=== PATIENT | female | born 1955 | race Caucasian/White ===

== ENCOUNTER 2017-10-03 07:10 | Inpatient (IN) | payer BC ==
[~2017-10-03 07:10] MED LIST: Acetaminophen 325 MG Tab PO SCH; EPINEPHrine 1 MG/ML SDV ONE; Lactated Ringers 1,000 ML IV SCH; Lidocaine 1% 4 ML ONE; Lidocaine 1%/Sod Bicarbonate in NS 8.4% 1 ML Syringe IDERM PRN; Midazolam 1 MG/ML 2 ML SDV ONE; Pregabalin 25 MG Cap PO SCH; Propofol 200 MG/20 ML SDV ONE; Ropivacaine 0.5% 5 MG/ML 30 ML SDV ONE; Sodium Chloride 0.9% 10 ML Syringe FLUSH PRN; ceFAZolin 1 GM Vial ONE; fentaNYL 100 MCG/2 ML SDV ONE; oxyCODONE ER 10 MG TAB.ER PO SCH
[2017-10-03] MEDS ORDERED: Iodine/Sodium Iodide 2% Tincture 30 ML Bottle ONE (07:25)
[2017-10-03] MEDS ORDERED: Bupivacaine 0.25% 10 ML SDV ONE (07:25)
[2017-10-03] MEDS ORDERED: ceFAZolin 1 GM Vial ONE (07:25)
[2017-10-03] MEDS ORDERED: Vancomycin 1 GM SDV ONE (07:25)
--- NOTE | 2017-10-03 07:46 | PCM.PREANE ---
Preanesthetic Assessment - Procedure Proposed Procedure: right total knee - Anesthesia/Transfusion/Family Hx Anesthesia History: Prior Anesthesia Without Reaction Family History of Anesthesia Reaction: No Transfusion History: No Prior Transfusion(s) - Review of Systems General: No Symptoms Pulmonary: No Symptoms Cardiovascular: No Symptoms Gastrointestinal: No Symptoms Neurological: No Symptoms Other: Reports: Liver Problems (enzymes elevated), Thyroid Problems, Depression , Anxiety - Physical Assessment NPO Status Date: 10/02/17 NPO Status Time: 22:00 Pulse: 64 O2 Sat by Pulse Oximetry: 95 Respiratory Rate: 16 Blood Pressure: 149/80 Temperature: 98.2 F Height: 5 ft 1 in Weight: 72.575 kg ASA Class: 2 Mental Status: Alert & Oriented x3 Airway Class: Mallampati = 1 Dentition: Reports: Normal Dentition Thyro-Mental Finger Breadths: 3 Mouth Opening Finger Breadths: 3 ROM/Head Extension: Full Lungs: Clear to Auscultation, Normal Respiratory Effort Cardiovascular: Regular Rate, Regular Rhythm - Lab Values: Laboratory Last Values MRSA (PCR) Negative 09/13/17 10:20 - Allergies Allergies/Adverse Reactions: Allergies Allergy/AdvReac Type Severity Reaction Status Date / Time hair dye Allergy Swelling Uncoded 10/02/17 12:45 - Blood Blood Available: No - Anesthesia Plan Beta [place]: Metoprolol Med Last Dose Date: 10/02/17 Med Last Dose Time: 21:00 - Acknowledgements Anesthesia Type Planned: Spinal Pt an Appropriate Candidate for the Planned Anesthesia: Yes Alternatives and Risks of Anesthesia Discussed w Pt/Guardian: Yes Pt/Guardian Understands and Agrees with Anesthesia Plan: Yes PreAnesthesia Questionnaire HEENT History: Reports: Impaired Vision Cardiovascular History: Reports: High Cholesterol, Hypertension Respiratory History: Reports: 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) Other Respiratory History: pulmonary nodules Gastrointestinal History: Reports: Colon Polyp, Hemorrhoids, 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) Other Gastrointestinal History: elevated LFTs Genitourinary History: Reports: 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: , 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) Other OB/BYN History: postmenopausal atrophic vaginitis Musculoskeletal History: Reports: 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) Other Musculoskeletal History: bilateral knee pain Neurological History: Reports: None Psychiatric History: Reports: Anxiety, Depression, 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) Other Psychiatric History: insomnia Endocrine/Metabolic History: Reports: Hypothyroidism, Obesity/BMI 30+ Hematologic History: Reports: None Immunologic History: Reports: None Oncologic (Cancer) History: Reports: None Dermatologic History: Reports: 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) Other Dermatologic History: ingrown toenails - Past Surgical History Head Surgeries/Procedures: Reports: None HEENT Surgical History: Reports: Tonsillectomy Cardiovascular Surgical History: Reports: None Respiratory Surgical History: Reports: None GI Surgical History: Reports: Cholecystectomy, EGD, Hernia Repair/Other Female Surgical History: Reports: Section Male Surgical History: Reports: None Endocrine Surgical History: Reports: None Neurological Surgical History: Reports: None Musculoskeletal Surgical History: Reports: Arthroscopic Knee Oncologic Surgical History: Reports: None - SUBSTANCE USE Smoking Status *Q: Never Smoker Tobacco Use Within Last Twelve Months: No Second Hand Smoke Exposure: No Days Per Week of Alcohol Use: 0 Recreational Drug Use History: No - HOME MEDS Home Medications: Home Meds Hydrochlorothiazide 25 mg PO DAILY 03/14/15 [History] Levothyroxine [Synthroid] 50 mcg PO DAILY 03/14/15 [History] Metoprolol Succinate [Toprol XL] 50 mg PO DAILY 03/14/15 [History] Aspirin [[place] Aspirin] 81 mg PO DAILY 10/02/17 [History] Calcium Carb/Magnesium Cmb #10 [Leonardo-Mag] 1 tab PO DAILY 10/02/17 [History] Escitalopram Oxalate 10 mg PO DAILY 10/02/17 [History] Fish Oil/Shock-3 Fatty Acids [Fish Oil 1,000 MG] 1 gm PO DAILY 10/02/17 [History ] Flaxseed Oil 1,000 mg PO DAILY 10/02/17 [History] Ubidecarenone [Coq10] 50 mg PO DAILY 10/02/17 [History] - CURRENT (IN HOUSE) MEDS Current Meds: Current Medications Acetaminophen (Tylenol) 975 mg PO ONETIME RICK Stop: 10/03/17 18:00 Bisacodyl (Dulcolax) 5 mg PO DAILY PRN PRN Reason: Constipation Morphine Sulfate 8 mg/Epinephrine HCl 0.3 mg/Cefuroxime Sodium 750 mg/Ketorolac Tromethamine 30 mg/Sodium Chloride 27.9 ml 0 mg .XX ONETIME ONE Stop: 10/03/17 08:31 Cyclobenzaprine HCl (Flexeril) 10 mg PO TID PRN PRN Reason: Spasms Docusate Sodium (Colace) 100 mg PO BID [facility] Lactated Ringer's (Ringers, Lactated) 1,000 mls @ 125 mls/hr IV ASDIRECTED [facility] Stop: 10/03/17 23:00 Cefazolin Sodium/Dextrose 2 gm (/ Premix) 50 mls @ 100 mls/hr IV Q8H [facility] Stop: 10/03/17 23:14 Ketorolac Tromethamine (Toradol) 15 mg IVPUSH Q6H PRN PRN Reason: Pain Lidocaine/Sodium Bicarbonate (Buffered Lidocaine 1% In Ns 8.4%) 0.25 ml IDERM ONETIME PRN PRN Reason: Prior to IV Start Stop: 10/03/17 18:00 Magnesium Hydroxide (Milk Of Magnesia) 30 ml PO BID PRN PRN Reason: Constipation Morphine Sulfate (Morphine) 2 mg IVPUSH Q2H PRN PRN Reason: Breakthrough Pain Naloxone HCl (Narcan) 0.1 mg IVPUSH Q5M PRN PRN Reason: Oversedation Ondansetron HCl (Zofran) 4 mg IVPUSH Q6H PRN PRN Reason: Nausea/Vomiting Oxycodone HCl (Oxycontin) 10 mg PO ONETIME [facility] Stop: 10/03/17 18:00 Oxycodone/Acetaminophen (Percocet 325-5 Mg) 1 - 2 tab PO Q4H PRN PRN Reason: Pain Pregabalin (Lyrica) 50 mg PO ONETIME [facility] Stop: 10/03/17 12:00 Rivaroxaban (Xarelto) 10 mg PO DAILY [facility] Senna (Senna) 8.6 mg PO BID PRN PRN Reason: Constipation Sodium Chloride (Saline Flush) 10 ml FLUSH ASDIRECTED PRN PRN Reason: Keep Vein Open Stop: 10/03/17 18:00 Discontinued Medications Acetaminophen (Tylenol) 975 mg PO ONETIME [facility] Stop: 10/03/17 18:00 Bupivacaine HCl (Sensorcaine-Mpf 0.25%) Confirm Administered Dose 30 ml .ROUTE .STK-MED ONE Stop: 10/03/17 07:26 Cefazolin Sodium (Ancef) Confirm Administered Dose 2 gm .ROUTE .STK-MED ONE Stop: 10/03/17 06:32 Cefazolin Sodium (Ancef) Confirm Administered Dose 2 gm .ROUTE .STK-MED ONE Stop: 10/03/17 07:26 Epinephrine HCl (Adrenalin) Confirm Administered Dose 1 mg .ROUTE .STK-MED ONE Stop: 10/03/17 06:34 Fentanyl (Sublimaze) Confirm Administered Dose 100 mcg .ROUTE .STK-MED ONE Stop: 10/03/17 06:29 Lidocaine HCl (Xylocaine-Mpf 1%) Confirm Administered Dose 4 mls @ as directed .ROUTE .STK-MED ONE Stop: 10/03/17 06:28 Iodine (Iodine 2% Mild Tincture) Confirm Administered Dose 30 ml .ROUTE .STK- MED ONE Stop: 10/03/17 07:26 Midazolam HCl (Versed 1 Mg/Ml) Confirm Administered Dose 2 mg .ROUTE .STK-MED ONE Stop: 10/03/17 06:29 Oxycodone HCl (Oxycontin) 10 mg PO ONETIME RICK Stop: 10/03/17 18:00 Pregabalin (Lyrica) 50 mg PO ONETIME RICK Propofol (Diprivan 20 Ml) Confirm Administered Dose 600 mg .ROUTE .STK-MED ONE Stop: 10/03/17 06:28 Ropivacaine (Naropin 0.5%) Confirm Administered Dose 30 ml .ROUTE .STK-MED ONE Stop: 10/03/17 06:34 Tranexamic Acid (Cyklokapron) Confirm Administered Dose 1,000 mg .ROUTE .STK- MED ONE Stop: 10/03/17 07:26 Vancomycin HCl (Vancomycin) Confirm Administered Dose 1 gm .ROUTE .STK-MED ONE Stop: 10/03/17 07:26
[2017-10-03] MEDS ORDERED: Morphine 8 MG, EPINEPHrine 0.3 MG, Cefuroxime 750 MG, Ketorolac 30 MG, Sodium Chloride ... ONE ×10 (08:30→10:00)
[2017-10-03] MEDS ORDERED: Bupivacaine 0.75% 30 ML SDV ONE (09:04)
[2017-10-03] MEDS ORDERED: Lactated Ringers 1,000 ML ONE (09:04)
[2017-10-03] MEDS ORDERED: fentaNYL 100 MCG/2 ML SDV IVPUSH PRN (09:17)
[2017-10-03] MEDS ORDERED: Ondansetron 4 MG/2 ML SDV IVPUSH PRN ×2 (09:17→11:00)
[2017-10-03] MEDS ORDERED: Meperidine PF 50 MG/ML Syringe IVPUSH PRN (09:17)
[2017-10-03] MEDS ORDERED: Ketorolac 30 MG/ML SDV ONE (10:19)
[2017-10-03] MEDS ORDERED: Ondansetron 4 MG/2 ML SDV ONE (10:22)
--- NOTE | 2017-10-03 10:50 | PCM.POSTAN ---
POST ANESTHESIA ASSESSMENT - MENTAL STATUS Mental Status: Alert, Oriented - VITAL SIGNS Pulse Rate: 67 SaO2: 99 Resp Rate: 10 Blood Pressure: 115/57 Temperature: 97.7 F - RESPIRATORY Respiratory Status: Respiratory Rate WNL, Airway Patent, O2 Saturation Stable, Supplemental Oxygen - CARDIOVASCULAR CV Status: Pulse Rate WNL, Blood Pressure Stable - GASTROINTESTINAL GI Status: No Symptoms - PAIN Pain Score: 0 - POST OP HYDRATION Hydration Status: Adequate & Stable
[2017-10-03] MEDS ORDERED: Ketorolac 15 MG/ML SDV IVPUSH PRN (11:00)
[2017-10-03] MEDS ORDERED: Cyclobenzaprine 10 MG Tab PO PRN (11:00)
[2017-10-03] MEDS ORDERED: Bisacodyl 5 MG Tab PO PRN (11:00)
[2017-10-03] MEDS ORDERED: Naloxone 0.4 MG/ML SDV IVPUSH PRN (11:00)
[2017-10-03] MEDS ORDERED: Magnesium Hydroxide 400 MG/5 ML Susp 30 ML Cup PO PRN (11:00)
[2017-10-03] MEDS ORDERED: Acetaminophen/oxyCODONE 325-5 MG Tab PO PRN (11:00)
[2017-10-03] MEDS ORDERED: Morphine 2 MG/ML Syringe IVPUSH PRN (11:00)
[2017-10-03] MEDS ORDERED: Sennosides 8.6 MG Tab PO PRN (11:00)
--- NOTE | 2017-10-03 11:50 | CR ---
Right knee: AP and lateral views of the right knee were obtained. Comparison: Prior right knee study of 03/01/15. Knee prosthesis is seen. Components are aligned. Soft tissue air is noted from the surgical procedure. Underlying bony structures are intact. Impression: 1. Satisfactory radiographic appearance of recently placed right knee prosthesis. Diagnostic code #2
--- NOTE | 2017-10-03 12:06 | PCM.OPNOTE ---
- General Post-Op/Procedure Note Date of Surgery/Procedure: 10/03/17 Operative Procedure(s): right total knee arthroplasty Pre Op Diagnosis: right knee osteoarthrosis Post-Op Diagnosis: Same Primary Surgeon: Joshua Pascal Anesthesia Provider: Zev Joe Human Resources Trainer: Sandrine Ramirez Human Resources Trainer: Tisha Landers EBL in mLs: 250 Complications: None Condition: Good Free Text/Narrative:: Intake & Output 10/02/17 10/03/17 10/03/17 22:59 06:59 14:59 Output Total 75 Balance -75 size 3 femur size 2 tibia 9mm 29x9
--- NOTE | 2017-10-03 12:11 | PCM.SN ---
- Free Text/Narrative Note: rRight selective femoral nerve block at the adductor canal for post-procedure pain control under US guidance requested by Dr. Pascal. Time Out: 1120 Start: 1120 End: 1131 Chart reviewed. Consent signed. Questions answered. Appropriate monitors applied. Time out performed. Right mid-shaft femur identified with ultrasound, scanning medially of femur, the femoral artery in the adductor canal visualized , and the femoral nerve located laterally to the artery. The skin was prepped lateral to the ultrasound probe with chlorahexadine times two. The 21ga 4 insulated block needle was inserted under direct ultrasound guidance into the adductor canal. 25mL of 0.5% ropivacaine with 1:200,000 epinephrine was injected circumferentially around the nerve with intermittent negative aspiration noted. Patient tolerated the procedure well. Sterile technique noted along with sterile gloves, mask, and sterile probe cover. See picture on progress note and vital signs on nurses notes. Block completed in PACU with Alex Curry CRNA assist.
--- NOTE | 2017-10-03 15:33 | PCM.CONS ---
H&P History of Present Illness - General Date of Service: 10/03/17 Admit Problem/Dx: Admission Diagnosis/Problem Admission Diagnosis/Problem Osteoarthritis of knee Source of Information: Patient, Provider History Limitations: Reports: No Limitations - History of Present Illness Initial Comments - Free Text/Narative: Nolvia is a 62 yo female patient of Dr. Pascal who is post-operative day 0 of R TKA. Hospital medicine was consulted for post-operative medical care. At this time she is stable. Pain is controlled. She denies any chest pain, shortness of breath, palpitations, nausea, or vomiting. She carries a history of: HTN, HLD, pulmonary nodules, hypothyroid, anxiety, insomnia, elevated LFTs, liver hemangioma, gastritis. She has never smoked. She is a full code. Her primary care provider is Dr. Jojo Mendoza. - Related Data Allergies/Adverse Reactions: Allergies Allergy/AdvReac Type Severity Reaction Status Date / Time hair dye Allergy Swelling Uncoded 10/03/17 12:25 Home Medications: Home Meds Hydrochlorothiazide 25 mg PO DAILY 03/14/15 [History] Levothyroxine [Synthroid] 50 mcg PO DAILY 03/14/15 [History] Metoprolol Succinate [Toprol XL] 50 mg PO DAILY 03/14/15 [History] Aspirin [[place] Aspirin] 81 mg PO DAILY 10/02/17 [History] Calcium Carb/Magnesium Cmb #10 [Leonardo-Mag] 1 tab PO DAILY 10/02/17 [History] Escitalopram Oxalate 10 mg PO DAILY 10/02/17 [History] Fish Oil/[place]-3 Fatty Acids [Fish Oil 1,000 MG] 1 gm PO DAILY 10/02/17 [History ] Flaxseed Oil 1,000 mg PO DAILY 10/02/17 [History] Ubidecarenone [Coq10] 50 mg PO DAILY 10/02/17 [History] Past Medical History HEENT History: Reports: Impaired Vision Cardiovascular History: Reports: High Cholesterol, Hypertension Respiratory History: Reports: 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) Other Respiratory History: pulmonary nodules Gastrointestinal History: Reports: Colon Polyp, Hemorrhoids, 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) Other Gastrointestinal History: elevated LFTs Genitourinary History: Reports: None 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: , 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) Other OB/BYN History: postmenopausal atrophic vaginitis Musculoskeletal History: Reports: 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) Other Musculoskeletal History: bilateral knee pain Neurological History: Reports: None Psychiatric History: Reports: Anxiety, Depression, 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) Other Psychiatric History: insomnia Endocrine/Metabolic History: Reports: Hypothyroidism, Obesity/BMI 30+ Hematologic History: Reports: None Immunologic History: Reports: None Oncologic (Cancer) History: Reports: None Dermatologic History: Reports: 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) Other Dermatologic History: ingrown toenails - Past Surgical History Head Surgeries/Procedures: Reports: None HEENT Surgical History: Reports: Tonsillectomy Cardiovascular Surgical History: Reports: None Respiratory Surgical History: Reports: None GI Surgical History: Reports: Cholecystectomy, EGD, Hernia Repair/Other Female Surgical History: Reports: Section Endocrine Surgical History: Reports: None Neurological Surgical History: Reports: None Musculoskeletal Surgical History: Reports: Arthroscopic Knee Oncologic Surgical History: Reports: None Social & Family History - Tobacco Use Smoking Status *Q: Never Smoker Second Hand Smoke Exposure: No - Caffeine Use Caffeine Use: Reports: Coffee - Alcohol Use Days Per Week of Alcohol Use: 0 - Recreational Drug Use Recreational Drug Use: No H&P Review of Systems - Review of Systems: Review Of Systems: See Below General: Reports: Other ("Groggy"). Denies: Fever, Chills HEENT: Reports: Other (Sensitive to light) Pulmonary: Reports: No Symptoms. Denies: Shortness of Breath Cardiovascular: Reports: No Symptoms Gastrointestinal: Reports: Nausea (with walking only). Denies: Abdominal Pain, Constipation, Diarrhea, Vomiting Genitourinary: Reports: No Symptoms. Denies: Dysuria, Frequency, Burning, Pain , Urgency Musculoskeletal: Reports: No Symptoms. Denies: Joint Pain Skin: Reports: No Symptoms Psychiatric: Reports: No Symptoms Neurological: Reports: No Symptoms Hematologic/Lymphatic: Reports: No Symptoms Immunologic: Reports: No Symptoms Exam - Exam Exam: See Below - Vital Signs Vital Signs: Last Vital Signs Temp 96.9 F 10/03/17 14:20 Pulse 64 10/03/17 14:31 Resp 15 10/03/17 14:20 BP 124/61 10/03/17 14:31 Pulse Ox 100 10/03/17 14:31 Weight: 160 lb - Exam Quality Assessment: Supplemental Oxygen (1L nasal cannula), DVT Prophylaxis General: Alert, Oriented, Cooperative, Mild Distress HEENT: PERRLA, Hearing Intact, Mucosa Moist & [place], Nares Patent, Normal Nasal Septum, Posterior Pharynx Clear, Conjunctiva Clear, EOMI, EACs Clear, TMs Clear Neck: Supple, Trachea Midline, 2 Lungs: Clear to Auscultation, Normal Respiratory Effort Cardiovascular: Regular Rate, Regular Rhythm GI/Abdominal Exam: Normal Bowel Sounds, Soft, Non-Tender, No Organomegaly, No Distention, No Abnormal Bruit, No Mass, Pelvis Stable (Female) Exam: Deferred Rectal (Female) Exam: Deferred Back Exam: Normal Inspection, Full Range of Motion, NT Extremities: Normal Inspection, Non-Tender, No Pedal Edema, Normal Capillary Refill, Limited Range of Motion (s/p R TKA) Peripheral Pulses: 2+: Posterior Tibial (L), Posterior Tibial (R), Dorsalis Pedis (L), Dorsalis Pedis (R) Skin: Warm, Dry, Intact, Other (bandage dry and intact) Neurological: Cranial Nerves Intact (grossly), Abnormal Gait (s/p R TKA) Neuro Extensive - Mental Status: Alert, Oriented x3, Normal Mood/Affect, Normal Cognition, Memory Intact Psychiatric: Alert, Normal Affect, Normal Mood Consult PN Assessment/Plan POD#: 0 Procedures: Procedures ASSAY OF PROTEIN OTHER (03/15/15) ASSAY OF TROPONIN QUANT (05/24/14) BODY FLUID CELL COUNT (03/15/15) CHEST X-RAY 2VW FRONTAL&LATL (05/24/14) COMP SCREEN MAMMOGRAM ADD-ON (04/06/16) COMPLETE CBC W/AUTO DIFF WBC (05/24/14) COMPREHEN METABOLIC PANEL (05/24/14) COMPUTER DX MAMMOGRAM ADD-ON (02/16/14) DXA BONE DENSITY AXIAL (05/23/15) ELECTROCARDIOGRAM TRACING (05/24/14) EMERGENCY DEPT VISIT (05/24/14) EXAM SYNOVIAL FLUID CRYSTALS (03/15/15) GLUCOSE OTHER FLUID (03/15/15) INFLUENZA ASSAY W/OPTIC (05/24/14) KNEE ARTHROSCOPY/SURGERY (03/15/15) KNEE ARTHROSCOPY/SURGERY (03/15/15) MR-STAPH DNA AMP PROBE (03/01/15) MRI JNT OF LWR EXTRE W/O DYE (02/24/15) ROUTINE VENIPUNCTURE (05/24/14) SCR MAMMO BI INCL CAD (04/18/17) THER/PROPH/DIAG IV INF ADDON (05/24/14) THER/PROPH/DIAG IV INF INIT (05/24/14) US EXAM BREAST(S) (02/16/14) X-RAY EXAM OF KNEE 3 (03/01/15) (1) HTN (hypertension) SNOMED Code(s): 06807370 Code(s): I10 - ESSENTIAL (PRIMARY) HYPERTENSION Priority: Medium Current Visit: Yes Qualifiers: Hypertension type: unspecified Qualified Code(s): I10 - Essential (primary ) hypertension (2) HLD (hyperlipidemia) SNOMED Code(s): 27536183 Code(s): E78.5 - HYPERLIPIDEMIA, UNSPECIFIED Priority: Low Current Visit : No Qualifiers: Hyperlipidemia type: unspecified Qualified Code(s): E78.5 - Hyperlipidemia , unspecified (3) Pulmonary nodules SNOMED Code(s): 759706971 Code(s): R91.8 - OTHER NONSPECIFIC ABNORMAL FINDING OF LUNG FIELD Priority : Low Current Visit: No (4) Hypothyroid SNOMED Code(s): 92706098 Code(s): E03.9 - HYPOTHYROIDISM, UNSPECIFIED Priority: Low Current Visit : Yes Qualifiers: Hypothyroidism type: unspecified Qualified Code(s): E03.9 - Hypothyroidism , unspecified (5) Anxiety SNOMED Code(s): 70804935 Code(s): F41.9 - ANXIETY DISORDER, UNSPECIFIED Priority: Low Current Visit: No (6) Insomnia SNOMED Code(s): 178342772 Code(s): G47.00 - INSOMNIA, UNSPECIFIED Priority: Low Current Visit: No Qualifiers: Insomnia type: unspecified Qualified Code(s): G47.00 - Insomnia, unspecified (7) Elevated liver function tests SNOMED Code(s): 557545515, 787741179 Code(s): R94.5 - ABNORMAL RESULTS OF LIVER FUNCTION STUDIES Priority: Low Current Visit: No (8) Liver hemangioma SNOMED Code(s): 77345111 Code(s): D18.03 - HEMANGIOMA OF INTRA-ABDOMINAL STRUCTURES Priority: Low Current Visit: No (9) Gastritis SNOMED Code(s): 2054159 Code(s): K29.70 - GASTRITIS, UNSPECIFIED, WITHOUT BLEEDING Priority: Medium Current Visit: Yes Qualifiers: Gastritis type: unspecified gastritis Chronicity: unspecified Gastritis bleeding: presence of bleeding unspecified Qualified Code(s): K29.70 - Gastritis, unspecified, without bleeding Problem List Initiated/Reviewed/Updated: Yes My Orders Last 24 Hours: My Active Orders 10/03/17 21:00 Famotidine [Pepcid] 20 mg PO BID Plan: I/P: Acute: S/P right total knee arthroplasty - post-operative day 0 -DVT prophylaxis and pain management per primary care team -PT/OT -IS/RT -Monitor oxygen saturation -Titrate oxygen as needed -Vital signs stable -Monitor labs -Pre-operative Hgb was 14.7, GFR >90 Osteoarthritis of knee -Pain management per primary care team Chronic: HTN HLD Pulmonary nodules Hypothyroid Anxiety Insomnia Elevated LFTs Liver hemangioma Gastritis Plan: CM for discharge planning GI prophylaxis: Pepcid DVT/PE prophylaxis: CARMELA singh, SCD, Xaralto Home medications as indicated Other orders as listed above Routine AM labs She is a full code. Her PCP is Dr. Jojo Mendoza. Thank you for allowing us to participate in the care of this patient!!
[2017-10-03] MEDS: ceFAZolin 2 GM in Premix Bag 1 BAG IV SCH ×2 (15:53→23:13)
[2017-10-03] MEDS: Famotidine 20 MG Tab PO SCH (20:47)
[2017-10-03] MEDS: Docusate Sodium 100 MG Cap PO SCH (20:47)
--- NOTE | 2017-10-04 07:09 | PCM.CONSN ---
- General Info Date of Service: 10/04/17 Admission Dx/Problem (Free Text): Admission Diagnosis/Problem Admission Diagnosis/Problem Osteoarthritis of knee Subjective Update: In to see Nolvia. She is sitting in the chair. She has been working with therapies and has been doing very well. No concerns from patient or nursing. Functional Status: Reports: Pain Controlled, Tolerating Diet, Ambulating, Urinating, Incentive Spirometry. Denies: New Symptoms - Review of Systems General: Reports: No Symptoms HEENT: Reports: No Symptoms Pulmonary: Reports: No Symptoms Cardiovascular: Reports: No Symptoms Gastrointestinal: Reports: No Symptoms Genitourinary: Reports: No Symptoms Musculoskeletal: Reports: Joint Pain Skin: Reports: No Symptoms Neurological: Reports: No Symptoms Psychiatric: Reports: No Symptoms - Patient Data Vitals - Most Recent: Last Vital Signs Temp 98.2 F 10/04/17 02:57 Pulse 64 10/04/17 02:57 Resp 16 10/04/17 02:57 BP 116/55 L 10/04/17 02:57 Pulse Ox 99 10/04/17 02:57 Weight - Most Recent: 168 lb 4.8 oz I&O - Last 24 Hours: Intake & Output 10/03/17 10/04/17 10/04/17 22:59 06:59 14:59 Intake Total 300 850 Output Total 150 350 Balance 150 500 Lab Results Last 24 Hours: Laboratory Results - last 24 hr 10/04/17 Range/Units 05:40 WBC 7.66 (3.98-10.04) K/mm3 RBC 3.91 L (3.98-5.22) M/mm3 Hgb 11.6 (11.2-15.7) gm/L Hct 36.8 (34.1-44.9) % MCV 94.1 (79.4-94.8) fl MCH 29.7 (25.6-32.2) pg MCHC 31.5 L (32.2-35.5) g/dl RDW Std Deviation 43.1 (36.4-46.3) fL Plt Count 182 (182-369) K/mm3 MPV 9.8 (9.4-12.3) fl Med Orders - Current: Current Medications Aspirin (Aspirin) 81 mg PO DAILY [facility] Bisacodyl (Dulcolax) 5 mg PO DAILY PRN PRN Reason: Constipation Citalopram Hydrobromide (Celexa) 20 mg PO DAILY [facility] Cyclobenzaprine HCl (Flexeril) 10 mg PO TID PRN PRN Reason: Spasms Docusate Sodium (Colace) 100 mg PO BID [facility] Last Admin: 10/03/17 20:47 Dose: 100 mg Famotidine (Pepcid) 20 mg PO BID [facility] Last Admin: 10/03/17 20:47 Dose: 20 mg Hydrochlorothiazide (Hydrochlorothiazide) 25 mg PO DAILY [facility] Cefazolin Sodium/Dextrose 2 gm (/ Premix) 50 mls @ 100 mls/hr IV Q8H [facility] Stop: 10/04/17 08:29 Last Admin: 10/03/17 23:13 Dose: 100 mls/hr Ketorolac Tromethamine (Toradol) 15 mg IVPUSH Q6H PRN PRN Reason: Pain Last Admin: 10/04/17 06:16 Dose: 15 mg Levothyroxine Sodium (Synthroid) 50 mcg PO DAILY [facility] Magnesium Hydroxide (Milk Of Magnesia) 30 ml PO BID PRN PRN Reason: Constipation Metoprolol Succinate (Toprol Xl) 50 mg PO DAILY [facility] Morphine Sulfate (Morphine) 2 mg IVPUSH Q2H PRN PRN Reason: Breakthrough Pain Naloxone HCl (Narcan) 0.1 mg IVPUSH Q5M PRN PRN Reason: Oversedation Ondansetron HCl (Zofran) 4 mg IVPUSH Q6H PRN PRN Reason: Nausea/Vomiting Oxycodone/Acetaminophen (Percocet 325-5 Mg) 1 - 2 tab PO Q4H PRN PRN Reason: Pain Last Admin: 10/03/17 23:37 Dose: 1 tab Calcium Carb/Magnesium Cmb #10 [ Leonardo-Mag] 1 each PO DAILY [facility] Rivaroxaban (Xarelto) 10 mg PO DAILY [facility] Senna (Senna) 8.6 mg PO BID PRN PRN Reason: Constipation Discontinued Medications Acetaminophen (Tylenol) 975 mg PO ONETIME [facility] Stop: 10/03/17 18:00 Acetaminophen (Tylenol) 975 mg PO ONETIME [facility] Stop: 10/03/17 18:00 Last Admin: 10/03/17 07:51 Dose: 975 mg Bupivacaine HCl (Sensorcaine-Mpf 0.25%) Confirm Administered Dose 30 ml .ROUTE .STK-MED ONE Stop: 10/03/17 07:26 Last Admin: 10/03/17 10:08 Dose: 24 ml Bupivacaine HCl (Sensorcaine-Mpf 0.75%) Confirm Administered Dose 30 ml .ROUTE .STK-MED ONE Stop: 10/03/17 09:05 Cefazolin Sodium (Ancef) Confirm Administered Dose 2 gm .ROUTE .STK-MED ONE Stop: 10/03/17 06:32 Last Admin: 10/03/17 10:02 Dose: 2 gm Cefazolin Sodium (Ancef) Confirm Administered Dose 2 gm .ROUTE .STK-MED ONE Stop: 10/03/17 07:26 Morphine Sulfate 8 mg/Epinephrine HCl 0.3 mg/Cefuroxime Sodium 750 mg/Ketorolac Tromethamine 30 mg/Sodium Chloride 27.9 ml 0 mg .XX ONETIME ONE Stop: 10/03/17 10:01 Last Admin: 10/03/17 14:52 Dose: Not Given Epinephrine HCl (Adrenalin) Confirm Administered Dose 1 mg .ROUTE .STK-MED ONE Stop: 10/03/17 06:34 Fentanyl (Sublimaze) Confirm Administered Dose 100 mcg .ROUTE .STK-MED ONE Stop: 10/03/17 06:29 Fentanyl (Sublimaze) 50 mcg IVPUSH Q5M PRN PRN Reason: Pain Stop: 10/03/17 16:00 Lactated Ringer's (Ringers, Lactated) 1,000 mls @ 125 mls/hr IV ASDIRECTED [facility] Stop: 10/03/17 23:00 Last Admin: 10/03/17 07:35 Dose: 125 mls/hr Lidocaine HCl (Xylocaine-Mpf 1%) Confirm Administered Dose 4 mls @ as directed .ROUTE .STK-MED ONE Stop: 10/03/17 06:28 Lactated Ringer's (Ringers, Lactated) Confirm Administered Dose 1,000 mls @ as directed .ROUTE .STK-MED ONE Stop: 10/03/17 09:05 Iodine (Iodine 2% Mild Tincture) Confirm Administered Dose 30 ml .ROUTE .STK- MED ONE Stop: 10/03/17 07:26 Last Admin: 10/03/17 09:59 Dose: 18 ml Ketorolac Tromethamine (Toradol) Confirm Administered Dose 30 mg .ROUTE .STK- MED ONE Stop: 10/03/17 10:20 Lidocaine/Sodium Bicarbonate (Buffered Lidocaine 1% In Ns 8.4%) 0.25 ml IDERM ONETIME PRN PRN Reason: Prior to IV Start Stop: 10/03/17 18:00 Last Admin: 10/03/17 07:35 Dose: 0.25 ml Meperidine HCl (Demerol) 12.5 mg IVPUSH ONETIME PRN PRN Reason: shivering Stop: 10/03/17 09:18 Midazolam HCl (Versed 1 Mg/Ml) Confirm Administered Dose 2 mg .ROUTE .STK-MED ONE Stop: 10/03/17 06:29 Non-Formulary Medication (Ubidecarenone [Coq10]) 50 mg PO DAILY [facility] Ondansetron HCl (Zofran) 4 mg IVPUSH ONETIME PRN PRN Reason: Nausea/Vomiting Stop: 10/03/17 18:00 Ondansetron HCl (Zofran) Confirm Administered Dose 4 mg .ROUTE .STK-MED ONE Stop: 10/03/17 10:23 Oxycodone HCl (Oxycontin) 10 mg PO ONETIME [facility] Stop: 10/03/17 18:00 Oxycodone HCl (Oxycontin) 10 mg PO ONETIME [facility] Stop: 10/03/17 18:00 Last Admin: 10/03/17 07:50 Dose: 10 mg Pregabalin (Lyrica) 50 mg PO ONETIME [facility] Pregabalin (Lyrica) 50 mg PO ONETIME [facility] Stop: 10/03/17 12:00 Last Admin: 10/03/17 07:50 Dose: 50 mg Propofol (Diprivan 20 Ml) Confirm Administered Dose 600 mg .ROUTE .STK-MED ONE Stop: 10/03/17 06:28 Ropivacaine (Naropin 0.5%) Confirm Administered Dose 30 ml .ROUTE .STK-MED ONE Stop: 10/03/17 06:34 Sodium Chloride (Saline Flush) 10 ml FLUSH ASDIRECTED PRN PRN Reason: Keep Vein Open Stop: 10/03/17 18:00 Tranexamic Acid (Cyklokapron) Confirm Administered Dose 1,000 mg .ROUTE .STK- MED ONE Stop: 10/03/17 07:26 Last Admin: 10/03/17 10:13 Dose: 1,000 mg Vancomycin HCl (Vancomycin) Confirm Administered Dose 1 gm .ROUTE .STK-MED ONE Stop: 10/03/17 07:26 Last Admin: 10/03/17 10:09 Dose: 1 gm - Exam Quality Assessment: DVT Prophylaxis General: Alert, Oriented, Cooperative, No Acute Distress HEENT: Pupils Equal, Pupils Reactive, EOMI, Mucous Membr. Moist/Angels Neck: Supple, Trachea Midline, No JVD Lungs: Clear to Auscultation, Normal Respiratory Effort Cardiovascular: Regular Rate, Regular Rhythm GI/Abdominal Exam: Normal Bowel Sounds, Soft, Non-Tender, No Distention, No Abnormal Bruit (Female) Exam: Deferred Back Exam: Normal Inspection, Full Range of Motion Extremities: No Pedal Edema, Normal Capillary Refill, Leg Pain, Limited Range of Motion, Other (Bandage in place on right leg. Cooling pack in place ) Peripheral Pulses: 2+: Radial (L), Radial (R), Posterior Tibial (L), Posterior Tibial (R), Dorsalis Pedis (L), Dorsalis Pedis (R) Skin: Warm, Dry, Intact Wound/Incisions: Dressing Dry and Intact, No Drainage Neurological: No New Focal Deficit Psy/Mental Status: Alert, Normal Affect, Normal Mood Consult PN Assessment/Plan POD#: 1 Procedures: Procedures ASSAY OF PROTEIN OTHER (03/15/15) ASSAY OF TROPONIN QUANT (05/24/14) BODY FLUID CELL COUNT (03/15/15) CHEST X-RAY 2VW FRONTAL&LATL (05/24/14) COMP SCREEN MAMMOGRAM ADD-ON (04/06/16) COMPLETE CBC W/AUTO DIFF WBC (05/24/14) COMPREHEN METABOLIC PANEL (05/24/14) COMPUTER DX MAMMOGRAM ADD-ON (02/16/14) DXA BONE DENSITY AXIAL (05/23/15) ELECTROCARDIOGRAM TRACING (05/24/14) EMERGENCY DEPT VISIT (05/24/14) EXAM SYNOVIAL FLUID CRYSTALS (03/15/15) GLUCOSE OTHER FLUID (03/15/15) INFLUENZA ASSAY W/OPTIC (05/24/14) KNEE ARTHROSCOPY/SURGERY (03/15/15) KNEE ARTHROSCOPY/SURGERY (03/15/15) MR-STAPH DNA AMP PROBE (03/01/15) MRI JNT OF LWR EXTRE W/O DYE (02/24/15) ROUTINE VENIPUNCTURE (05/24/14) SCR MAMMO BI INCL CAD (04/18/17) THER/PROPH/DIAG IV INF ADDON (05/24/14) THER/PROPH/DIAG IV INF INIT (05/24/14) US EXAM BREAST(S) (02/16/14) X-RAY EXAM OF KNEE 3 (03/01/15) (1) S/P total knee arthroplasty SNOMED Code(s): 9230453628877, 101009222, 1806585024628 Code(s): Z96.659 - PRESENCE OF UNSPECIFIED ARTIFICIAL KNEE JOINT Priority: High Current Visit: Yes Qualifiers: Laterality: right Qualified Code(s): Z96.651 - Presence of right artificial knee joint (2) Osteoarthritis SNOMED Code(s): 251560961 Code(s): M19.90 - UNSPECIFIED OSTEOARTHRITIS, UNSPECIFIED SITE Priority: High Current Visit: Yes Qualifiers: Osteoarthritis location: knee Osteoarthritis type: primary Laterality: right Qualified Code(s): M17.11 - Unilateral primary osteoarthritis, right knee (3) Gastritis SNOMED Code(s): 9001106 Code(s): K29.70 - GASTRITIS, UNSPECIFIED, WITHOUT BLEEDING Priority: Medium Current Visit: No Qualifiers: Gastritis type: unspecified gastritis Chronicity: unspecified Gastritis bleeding: presence of bleeding unspecified Qualified Code(s): K29.70 - Gastritis, unspecified, without bleeding (4) HTN (hypertension) SNOMED Code(s): 80329273 Code(s): I10 - ESSENTIAL (PRIMARY) HYPERTENSION Priority: Medium Current Visit: No Qualifiers: Hypertension type: unspecified Qualified Code(s): I10 - Essential (primary ) hypertension (5) Hypothyroid SNOMED Code(s): 10764863 Code(s): E03.9 - HYPOTHYROIDISM, UNSPECIFIED Priority: Low Current Visit : No Qualifiers: Hypothyroidism type: unspecified Qualified Code(s): E03.9 - Hypothyroidism , unspecified (6) Anxiety SNOMED Code(s): 87667659 Code(s): F41.9 - ANXIETY DISORDER, UNSPECIFIED Priority: Low Current Visit: No (7) Elevated liver function tests SNOMED Code(s): 076325412, 461656093 Code(s): R94.5 - ABNORMAL RESULTS OF LIVER FUNCTION STUDIES Priority: Low Current Visit: No (8) HLD (hyperlipidemia) SNOMED Code(s): 60983419 Code(s): E78.5 - HYPERLIPIDEMIA, UNSPECIFIED Priority: Low Current Visit : No Qualifiers: Hyperlipidemia type: unspecified Qualified Code(s): E78.5 - Hyperlipidemia , unspecified (9) Insomnia SNOMED Code(s): 531851519 Code(s): G47.00 - INSOMNIA, UNSPECIFIED Priority: Low Current Visit: No Qualifiers: Insomnia type: unspecified Qualified Code(s): G47.00 - Insomnia, unspecified (10) Liver hemangioma SNOMED Code(s): 33394959 Code(s): D18.03 - HEMANGIOMA OF INTRA-ABDOMINAL STRUCTURES Priority: Low Current Visit: No (11) Pulmonary nodules SNOMED Code(s): 400497563 Code(s): R91.8 - OTHER NONSPECIFIC ABNORMAL FINDING OF LUNG FIELD Priority : Low Current Visit: No Problem List Initiated/Reviewed/Updated: Yes Plan: I/P: Acute: S/P right total knee arthroplasty - post-operative day 1 -DVT prophylaxis and pain management per primary care team -PT/OT -IS/RT -Monitor oxygen saturation -Titrate oxygen as needed -Vital signs stable -Pre-operative Hgb was 14.7; today 11.6 -Pre-operative GFR was >90; today >60 Osteoarthritis of knee -Pain management per primary care team Chronic: HTN HLD Pulmonary nodules Hypothyroid Anxiety Insomnia Elevated LFTs Liver hemangioma Gastritis Plan: CM for discharge planning GI prophylaxis: Pepcid DVT/PE prophylaxis: CARMELA singh, SCD, Xaralto Home medications as indicated Other orders as listed above Routine AM labs She is a full code. Her PCP is Dr. Jojo Mendoza. Thank you for allowing us to participate in the care of this patient!! From a hospitalist standpoint Nolvia is doing very well. She had some nausea last night but it has since resolved. She denies any chest pain, SOB, Nausea or vomiting currently. She has been doing very well with therapies. Vitals have been stable and labs look good. She has urinated. She is clear for discharge pending primary team agreement.
[2017-10-04] MEDS: ceFAZolin 2 GM in Premix Bag 1 BAG IV SCH (07:44)
--- NOTE | 2017-10-04 08:20 | PCM48HPAN ---
Post Anesthesia Note - EVALUATION WITHIN 48HRS OF ANESTHETIC Vital Signs in Normal Range: Yes Patient Participated in Evaluation: Yes Respiratory Function Stable: Yes Airway Patent: Yes Cardiovascular Function Stable: Yes Hydration Status Stable: Yes Pain Control Satisfactory: Yes Nausea and Vomiting Control Satisfactory: Yes Mental Status Recovered: Yes (feeling good with not much pain) Pulse Rate: 64 Resp Rate: 16 Temperature: 98.2 F Blood Pressure: 116/55
--- NOTE | 2017-10-04 08:26 | PCM.SURGPN ---
- General Info Date of Service: 10/04/17 POD#: 1 Functional Status: Reports: Pain Controlled, Tolerating Diet, Ambulating, Urinating, Incentive Spirometry, Other (The pt's pain has been controlled with one Percocet.) - Patient Data Vitals - Most Recent: Last Vital Signs Temp 98.2 F 10/04/17 08:19 Pulse 64 10/04/17 08:19 Resp 16 10/04/17 08:19 BP 116/55 L 10/04/17 08:19 Pulse Ox 99 10/04/17 02:57 Weight - Most Recent: 168 lb 4.8 oz I&O - Last 24 Hours: Intake & Output 10/03/17 10/04/17 10/04/17 22:59 06:59 14:59 Intake Total 300 850 Output Total 150 350 Balance 150 500 Lab Results Last 24 Hrs: Laboratory Results - last 24 hr 10/04/17 Range/Units 05:40 WBC 7.66 (3.98-10.04) K/mm3 RBC 3.91 L (3.98-5.22) M/mm3 Hgb 11.6 (11.2-15.7) gm/L Hct 36.8 (34.1-44.9) % MCV 94.1 (79.4-94.8) fl MCH 29.7 (25.6-32.2) pg MCHC 31.5 L (32.2-35.5) g/dl RDW Std Deviation 43.1 (36.4-46.3) fL Plt Count 182 (182-369) K/mm3 MPV 9.8 (9.4-12.3) fl Med Orders - Current: Current Medications Aspirin (Aspirin) 81 mg PO DAILY [facility] Bisacodyl (Dulcolax) 5 mg PO DAILY PRN PRN Reason: Constipation Citalopram Hydrobromide (Celexa) 20 mg PO DAILY [facility] Cyclobenzaprine HCl (Flexeril) 10 mg PO TID PRN PRN Reason: Spasms Docusate Sodium (Colace) 100 mg PO BID [facility] Last Admin: 10/03/17 20:47 Dose: 100 mg Famotidine (Pepcid) 20 mg PO BID [facility] Last Admin: 10/03/17 20:47 Dose: 20 mg Hydrochlorothiazide (Hydrochlorothiazide) 25 mg PO DAILY [facility] Levothyroxine Sodium (Synthroid) 50 mcg PO DAILY [facility] Magnesium Hydroxide (Milk Of Magnesia) 30 ml PO BID PRN PRN Reason: Constipation Metoprolol Succinate (Toprol Xl) 50 mg PO DAILY [facility] Oxycodone/Acetaminophen (Percocet 325-5 Mg) 1 - 2 tab PO Q4H PRN PRN Reason: Pain Last Admin: 10/03/17 23:37 Dose: 1 tab Calcium Carb/Magnesium Cmb #10 [ Leonardo-Mag] 1 each PO DAILY [facility] Rivaroxaban (Xarelto) 10 mg PO DAILY [facility] Senna (Senna) 8.6 mg PO BID PRN PRN Reason: Constipation Discontinued Medications Acetaminophen (Tylenol) 975 mg PO ONETIME [facility] Stop: 10/03/17 18:00 Acetaminophen (Tylenol) 975 mg PO ONETIME [facility] Stop: 10/03/17 18:00 Last Admin: 10/03/17 07:51 Dose: 975 mg Bupivacaine HCl (Sensorcaine-Mpf 0.25%) Confirm Administered Dose 30 ml .ROUTE .STK-MED ONE Stop: 10/03/17 07:26 Last Admin: 10/03/17 10:08 Dose: 24 ml Bupivacaine HCl (Sensorcaine-Mpf 0.75%) Confirm Administered Dose 30 ml .ROUTE .STK-MED ONE Stop: 10/03/17 09:05 Cefazolin Sodium (Ancef) Confirm Administered Dose 2 gm .ROUTE .STK-MED ONE Stop: 10/03/17 06:32 Last Admin: 10/03/17 10:02 Dose: 2 gm Cefazolin Sodium (Ancef) Confirm Administered Dose 2 gm .ROUTE .STK-MED ONE Stop: 10/03/17 07:26 Morphine Sulfate 8 mg/Epinephrine HCl 0.3 mg/Cefuroxime Sodium 750 mg/Ketorolac Tromethamine 30 mg/Sodium Chloride 27.9 ml 0 mg .XX ONETIME ONE Stop: 10/03/17 10:01 Last Admin: 10/03/17 14:52 Dose: Not Given Epinephrine HCl (Adrenalin) Confirm Administered Dose 1 mg .ROUTE .STK-MED ONE Stop: 10/03/17 06:34 Fentanyl (Sublimaze) Confirm Administered Dose 100 mcg .ROUTE .STK-MED ONE Stop: 10/03/17 06:29 Fentanyl (Sublimaze) 50 mcg IVPUSH Q5M PRN PRN Reason: Pain Stop: 10/03/17 16:00 Lactated Ringer's (Ringers, Lactated) 1,000 mls @ 125 mls/hr IV ASDIRECTED [facility] Stop: 10/03/17 23:00 Last Admin: 10/03/17 07:35 Dose: 125 mls/hr Lidocaine HCl (Xylocaine-Mpf 1%) Confirm Administered Dose 4 mls @ as directed .ROUTE .STK-MED ONE Stop: 10/03/17 06:28 Cefazolin Sodium/Dextrose 2 gm (/ Premix) 50 mls @ 100 mls/hr IV Q8H [facility] Stop: 10/04/17 08:29 Last Infusion: 10/03/17 23:43 Dose: Infused Lactated Ringer's (Ringers, Lactated) Confirm Administered Dose 1,000 mls @ as directed .ROUTE .STK-MED ONE Stop: 10/03/17 09:05 Iodine (Iodine 2% Mild Tincture) Confirm Administered Dose 30 ml .ROUTE .STK- MED ONE Stop: 10/03/17 07:26 Last Admin: 10/03/17 09:59 Dose: 18 ml Ketorolac Tromethamine (Toradol) 15 mg IVPUSH Q6H PRN PRN Reason: Pain Last Admin: 10/04/17 06:16 Dose: 15 mg Ketorolac Tromethamine (Toradol) Confirm Administered Dose 30 mg .ROUTE .STK- MED ONE Stop: 10/03/17 10:20 Lidocaine/Sodium Bicarbonate (Buffered Lidocaine 1% In Ns 8.4%) 0.25 ml IDERM ONETIME PRN PRN Reason: Prior to IV Start Stop: 10/03/17 18:00 Last Admin: 10/03/17 07:35 Dose: 0.25 ml Meperidine HCl (Demerol) 12.5 mg IVPUSH ONETIME PRN PRN Reason: shivering Stop: 10/03/17 09:18 Midazolam HCl (Versed 1 Mg/Ml) Confirm Administered Dose 2 mg .ROUTE .STK-MED ONE Stop: 10/03/17 06:29 Morphine Sulfate (Morphine) 2 mg IVPUSH Q2H PRN PRN Reason: Breakthrough Pain Naloxone HCl (Narcan) 0.1 mg IVPUSH Q5M PRN PRN Reason: Oversedation Non-Formulary Medication (Ubidecarenone [Coq10]) 50 mg PO DAILY [facility] Ondansetron HCl (Zofran) 4 mg IVPUSH Q6H PRN PRN Reason: Nausea/Vomiting Ondansetron HCl (Zofran) 4 mg IVPUSH ONETIME PRN PRN Reason: Nausea/Vomiting Stop: 10/03/17 18:00 Ondansetron HCl (Zofran) Confirm Administered Dose 4 mg .ROUTE .STK-MED ONE Stop: 10/03/17 10:23 Oxycodone HCl (Oxycontin) 10 mg PO ONETIME [facility] Stop: 10/03/17 18:00 Oxycodone HCl (Oxycontin) 10 mg PO ONETIME [facility] Stop: 10/03/17 18:00 Last Admin: 10/03/17 07:50 Dose: 10 mg Pregabalin (Lyrica) 50 mg PO ONETIME [facility] Pregabalin (Lyrica) 50 mg PO ONETIME [facility] Stop: 10/03/17 12:00 Last Admin: 10/03/17 07:50 Dose: 50 mg Propofol (Diprivan 20 Ml) Confirm Administered Dose 600 mg .ROUTE .STK-MED ONE Stop: 10/03/17 06:28 Ropivacaine (Naropin 0.5%) Confirm Administered Dose 30 ml .ROUTE .STK-MED ONE Stop: 10/03/17 06:34 Sodium Chloride (Saline Flush) 10 ml FLUSH ASDIRECTED PRN PRN Reason: Keep Vein Open Stop: 10/03/17 18:00 Tranexamic Acid (Cyklokapron) Confirm Administered Dose 1,000 mg .ROUTE .STK- MED ONE Stop: 10/03/17 07:26 Last Admin: 10/03/17 10:13 Dose: 1,000 mg Vancomycin HCl (Vancomycin) Confirm Administered Dose 1 gm .ROUTE .STK-MED ONE Stop: 10/03/17 07:26 Last Admin: 10/03/17 10:09 Dose: 1 gm - Exam Wound/Incisions: Dressing Dry and Intact General: Alert, Cooperative, No Acute Distress Lungs: Normal Respiratory Effort Extremities: Other (NVS intact for RLE. Greg's negative. ) - Problem List Review Problem List Initiated/Reviewed/Updated: Yes - My Orders Last 24 Hours: Active Orders 24 hr Category Date Time Status Pulse Oximetry [RC] ASDIRECTED Care 10/03/17 09:17 Active Ready for Discharge [RC] PER UNIT ROUTINE Care 10/04/17 08:20 Active Regular Diet [DIET] Diet 10/03/17 Lunch Active COMPREHENSIVE METABOLIC PN,CMP [CHEM] AM Lab 10/04/17 05:40 Received Acetaminophen/oxyCODONE [Percocet 325-5 MG] Med 10/03/17 11:00 Active 1 - 2 tab PO Q4H PRN Aspirin Med 10/04/17 09:00 Active 81 mg PO DAILY Bisacodyl [Dulcolax] Med 10/03/17 11:00 Active 5 mg PO DAILY PRN Citalopram [Celexa] Med 10/04/17 09:00 Active 20 mg PO DAILY Cyclobenzaprine [Flexeril] Med 10/03/17 11:00 Active 10 mg PO TID PRN Docusate Sodium [Colace] Med 10/03/17 21:00 Active 100 mg PO BID Famotidine [Pepcid] Med 10/03/17 21:00 Active 20 mg PO BID Hydrochlorothiazide Med 10/04/17 09:00 Active 25 mg PO DAILY Levothyroxine [Synthroid] Med 10/04/17 09:00 Active 50 mcg PO DAILY Magnesium Hydroxide [Milk of Magnesia] Med 10/03/17 11:00 Active 30 ml PO BID PRN Metoprolol Succinate [Toprol XL] Med 10/04/17 09:00 Active 50 mg PO DAILY Patient's Own Medication [Ptom] Med 10/04/17 09:00 Active 1 each PO DAILY Rivaroxaban [Xarelto] Med 10/04/17 09:00 Pending 10 mg PO DAILY Sennosides [Senna] Med 10/03/17 11:00 Active 8.6 mg PO BID PRN Medication Orders Aspirin (Aspirin) 81 mg PO DAILY [facility] Bisacodyl (Dulcolax) 5 mg PO DAILY PRN PRN Reason: Constipation Citalopram Hydrobromide (Celexa) 20 mg PO DAILY [facility] Cyclobenzaprine HCl (Flexeril) 10 mg PO TID PRN PRN Reason: Spasms Docusate Sodium (Colace) 100 mg PO BID [facility] Last Admin: 10/03/17 20:47 Dose: 100 mg Famotidine (Pepcid) 20 mg PO BID [facility] Last Admin: 10/03/17 20:47 Dose: 20 mg Hydrochlorothiazide (Hydrochlorothiazide) 25 mg PO DAILY [facility] Levothyroxine Sodium (Synthroid) 50 mcg PO DAILY [facility] Magnesium Hydroxide (Milk Of Magnesia) 30 ml PO BID PRN PRN Reason: Constipation Metoprolol Succinate (Toprol Xl) 50 mg PO DAILY [facility] Oxycodone/Acetaminophen (Percocet 325-5 Mg) 1 - 2 tab PO Q4H PRN PRN Reason: Pain Last Admin: 10/03/17 23:37 Dose: 1 tab Calcium Carb/Magnesium Cmb #10 [ [facility]-Mag] 1 each PO DAILY [facility] Rivaroxaban (Xarelto) 10 mg PO DAILY [facility] Senna (Senna) 8.6 mg PO BID PRN PRN Reason: Constipation - Assessment Assessment (Free Text/Narrative):: POD#1 - right TKA - Plan Plan (Free Text/Narrative):: 1. Discharge to home today. The pt feels prepared for discharge. 2. Xarelto 10mg PO daily as pt has hx of gastritis and family hx VTE. 3. Percocet for pain management. 4. Follow-up at outpatient scheduled. 5. Outpatient P.T. 6. Hgb 11.6. The pt's case was discussed with Dr. Pascal.
--- NOTE | 2017-10-04 08:27 | PCM.DCSUM1 ---
Discharge Summary - Hospital Course Brief History: Nolvia is a 62 yo female who underwent right TKA with Dr. Pascal on 10-03-2017. The procedure was completed under spinal anesthesia. The pt tolerated the procedure well and was admitted to the Medical-Surgical Unit. She received Ancef post-operatively. Medical management was provided by the Hospitalist service. The pt's Hospital course was uneventful. The pt's Hgb on POD#1 was 11.6. On POD#1, Xarelto 10mg PO daily was initiated for VTE prophylaxis. SCDs and TEDs were also ordered. A Mepilex dressing was placed at the incision site at the time of surgery and remained clean and dry. The pt participated in P.T. and O.T. and progressed well. The pt was allowed to WBAT and used a FWW for mobility. On POD#1, the pt was deemed appropriate to discharge to home with her family. - Discharge Data Discharge Date: 10/04/17 Discharge Disposition: Home, Self-Care 01 Condition: Good - Patient Summary/Data Operative Procedure(s) Performed: right total knee arthroplasty Consults: Consultations 10/03/17 06:38 OT Evaluation and Treatment [CONS] Routine PT Evaluation and Treatment [CONS] Routine 10/03/17 06:39 Consult to Physician [CONS] Routine - Patient Instructions Diet: Usual Diet as Tolerated Activity: Apply Ice, As Tolerated, Elevate Extremity, Full Weight Bearing Driving: Do Not Drive Showering/Bathing: May Shower Wound/Incision Care: Keep Operative Site/Wound Site Clean and Dry, Do NOT Change Dressing Notify Provider of: Fever, Increased Pain, Swelling and Redness, Drainage, Nausea and/or Vomiting Other/Special Instructions: Please get up and moving around every hour while awake. This helps to prevent blood clots. Please use your walker and have help with mobility as needed. Please use the Xarelto blood thinner medication daily. At home, please complete the exercises that you learned during the Hospital stay. Schedule for physical therapy. Use the pain medication as needed. The medication may cause drowsiness and constipation. Contact your primary care provider for instructions if you are constipated. You may use a stool softener like docusate sodium or Colace 100mg twice daily and/or a laxative like Miralax daily for constipation. Increase your water and fiber intake while you are using the pain medication. Please try to WEAN from use of the pain medication as soon as able. Wear the CARMELA hose during the day and you may remove these at night. Elevate the limb to decrease swelling. Place ice to the area often. Place a towel between your skin and the blue pad. Use the incentive spirometer often. Take deep breaths throughout the day. Increase your protein intake while you are healing. If you have diabetes, please closely monitor your blood sugars and notify your primary care provider with abnormal values. Call the Clinic with questions or concerns - [phone]. - Discharge Plan Prescriptions/Med Rec: Acetaminophen/oxyCODONE [Percocet 325-5 MG] 1 - 2 tab PO Q6H PRN #60 tablet PRN Reason: Pain Rivaroxaban [Xarelto] 10 mg PO DAILY #40 tablet Home Medications: Home Meds Hydrochlorothiazide 25 mg PO DAILY 03/14/15 [History] Levothyroxine [Synthroid] 50 mcg PO DAILY 03/14/15 [History] Metoprolol Succinate [Toprol XL] 50 mg PO DAILY 03/14/15 [History] Aspirin [[place] Aspirin] 81 mg PO DAILY 10/02/17 [History] Calcium Carb/Magnesium Cmb #10 [Leonardo-Mag] 1 tab PO DAILY 10/02/17 [History] Escitalopram Oxalate 10 mg PO DAILY 10/02/17 [History] Ubidecarenone [Coq10] 50 mg PO DAILY 10/02/17 [History] Acetaminophen/oxyCODONE [Percocet 325-5 MG] 1 - 2 tab PO Q6H PRN #60 tablet [Rx] Bisacodyl [Dulcolax] 5 mg PO DAILY PRN tablet 10/04/17 [Rx] Docusate Sodium [Colace] 100 mg PO BID cap 10/04/17 [Rx] Famotidine [Pepcid] 20 mg PO BID tablet 10/04/17 [Rx] Magnesium Hydroxide [Milk of Magnesia] 30 ml PO BID PRN cup 10/04/17 [Rx] Rivaroxaban [Xarelto] 10 mg PO DAILY #40 tablet 10/04/17 [Rx] Sennosides [Senna] 8.6 mg PO BID PRN tablet 10/04/17 [Rx] Referrals: Sandrine Ramirez PA-C [Physician [employer]] - - Patient Data Vitals - Most Recent: Last Vital Signs Temp 98.2 F 10/04/17 08:19 Pulse 64 10/04/17 08:19 Resp 16 10/04/17 08:19 BP 116/55 L 10/04/17 08:19 Pulse Ox 99 10/04/17 02:57 Weight - Most Recent: 168 lb 4.8 oz I&O - Last 24 hours: Intake & Output 10/03/17 10/04/17 10/04/17 22:59 06:59 14:59 Intake Total 300 850 Output Total 150 350 Balance 150 500 Lab Results - Last 24 hrs: Laboratory Results - last 24 hr 10/04/17 Range/Units 05:40 WBC 7.66 (3.98-10.04) K/mm3 RBC 3.91 L (3.98-5.22) M/mm3 Hgb 11.6 (11.2-15.7) gm/L Hct 36.8 (34.1-44.9) % MCV 94.1 (79.4-94.8) fl MCH 29.7 (25.6-32.2) pg MCHC 31.5 L (32.2-35.5) g/dl RDW Std Deviation 43.1 (36.4-46.3) fL Plt Count 182 (182-369) K/mm3 MPV 9.8 (9.4-12.3) fl Med Orders - Current: Current Medications Aspirin (Aspirin) 81 mg PO DAILY COUNTS INCLUDE 234 BEDS AT THE [facility] Bisacodyl (Dulcolax) 5 mg PO DAILY PRN PRN Reason: Constipation Citalopram Hydrobromide (Celexa) 20 mg PO DAILY COUNTS INCLUDE 234 BEDS AT THE [facility] Cyclobenzaprine HCl (Flexeril) 10 mg PO TID PRN PRN Reason: Spasms Docusate Sodium (Colace) 100 mg PO BID COUNTS INCLUDE 234 BEDS AT THE [facility] Last Admin: 10/03/17 20:47 Dose: 100 mg Famotidine (Pepcid) 20 mg PO BID COUNTS INCLUDE 234 BEDS AT THE [facility] Last Admin: 10/03/17 20:47 Dose: 20 mg Hydrochlorothiazide (Hydrochlorothiazide) 25 mg PO DAILY COUNTS INCLUDE 234 BEDS AT THE [facility] Levothyroxine Sodium (Synthroid) 50 mcg PO DAILY COUNTS INCLUDE 234 BEDS AT THE [facility] Magnesium Hydroxide (Milk Of Magnesia) 30 ml PO BID PRN PRN Reason: Constipation Metoprolol Succinate (Toprol Xl) 50 mg PO DAILY COUNTS INCLUDE 234 BEDS AT THE [facility] Oxycodone/Acetaminophen (Percocet 325-5 Mg) 1 - 2 tab PO Q4H PRN PRN Reason: Pain Last Admin: 10/03/17 23:37 Dose: 1 tab Calcium Carb/Magnesium Cmb #10 [ Leonardo-Mag] 1 each PO DAILY COUNTS INCLUDE 234 BEDS AT THE [facility] Rivaroxaban (Xarelto) 10 mg PO DAILY COUNTS INCLUDE 234 BEDS AT THE [facility] Senna (Senna) 8.6 mg PO BID PRN PRN Reason: Constipation Discontinued Medications Acetaminophen (Tylenol) 975 mg PO ONETIME COUNTS INCLUDE 234 BEDS AT THE [facility] Stop: 10/03/17 18:00 Acetaminophen (Tylenol) 975 mg PO ONETIME RICK Stop: 10/03/17 18:00 Last Admin: 10/03/17 07:51 Dose: 975 mg Bupivacaine HCl (Sensorcaine-Mpf 0.25%) Confirm Administered Dose 30 ml .ROUTE .STK-MED ONE Stop: 10/03/17 07:26 Last Admin: 10/03/17 10:08 Dose: 24 ml Bupivacaine HCl (Sensorcaine-Mpf 0.75%) Confirm Administered Dose 30 ml .ROUTE .STK-MED ONE Stop: 10/03/17 09:05 Cefazolin Sodium (Ancef) Confirm Administered Dose 2 gm .ROUTE .STK-MED ONE Stop: 10/03/17 06:32 Last Admin: 10/03/17 10:02 Dose: 2 gm Cefazolin Sodium (Ancef) Confirm Administered Dose 2 gm .ROUTE .STK-MED ONE Stop: 10/03/17 07:26 Morphine Sulfate 8 mg/Epinephrine HCl 0.3 mg/Cefuroxime Sodium 750 mg/Ketorolac Tromethamine 30 mg/Sodium Chloride 27.9 ml 0 mg .XX ONETIME ONE Stop: 10/03/17 10:01 Last Admin: 10/03/17 14:52 Dose: Not Given Epinephrine HCl (Adrenalin) Confirm Administered Dose 1 mg .ROUTE .STK-MED ONE Stop: 10/03/17 06:34 Fentanyl (Sublimaze) Confirm Administered Dose 100 mcg .ROUTE .STK-MED ONE Stop: 10/03/17 06:29 Fentanyl (Sublimaze) 50 mcg IVPUSH Q5M PRN PRN Reason: Pain Stop: 10/03/17 16:00 Lactated Ringer's (Ringers, Lactated) 1,000 mls @ 125 mls/hr IV ASDIRECTED COUNTS INCLUDE 234 BEDS AT THE [facility] Stop: 10/03/17 23:00 Last Admin: 10/03/17 07:35 Dose: 125 mls/hr Lidocaine HCl (Xylocaine-Mpf 1%) Confirm Administered Dose 4 mls @ as directed .ROUTE .STK-MED ONE Stop: 10/03/17 06:28 Cefazolin Sodium/Dextrose 2 gm (/ Premix) 50 mls @ 100 mls/hr IV Q8H COUNTS INCLUDE 234 BEDS AT THE [facility] Stop: 10/04/17 08:29 Last Infusion: 10/03/17 23:43 Dose: Infused Lactated Ringer's (Ringers, Lactated) Confirm Administered Dose 1,000 mls @ as directed .ROUTE .STK-MED ONE Stop: 10/03/17 09:05 Iodine (Iodine 2% Mild Tincture) Confirm Administered Dose 30 ml .ROUTE .STK- MED ONE Stop: 10/03/17 07:26 Last Admin: 10/03/17 09:59 Dose: 18 ml Ketorolac Tromethamine (Toradol) 15 mg IVPUSH Q6H PRN PRN Reason: Pain Last Admin: 10/04/17 06:16 Dose: 15 mg Ketorolac Tromethamine (Toradol) Confirm Administered Dose 30 mg .ROUTE .STK- MED ONE Stop: 10/03/17 10:20 Lidocaine/Sodium Bicarbonate (Buffered Lidocaine 1% In Ns 8.4%) 0.25 ml IDERM ONETIME PRN PRN Reason: Prior to IV Start Stop: 10/03/17 18:00 Last Admin: 10/03/17 07:35 Dose: 0.25 ml Meperidine HCl (Demerol) 12.5 mg IVPUSH ONETIME PRN PRN Reason: shivering Stop: 10/03/17 09:18 Midazolam HCl (Versed 1 Mg/Ml) Confirm Administered Dose 2 mg .ROUTE .STK-MED ONE Stop: 10/03/17 06:29 Morphine Sulfate (Morphine) 2 mg IVPUSH Q2H PRN PRN Reason: Breakthrough Pain Naloxone HCl (Narcan) 0.1 mg IVPUSH Q5M PRN PRN Reason: Oversedation Non-Formulary Medication (Ubidecarenone [Coq10]) 50 mg PO DAILY COUNTS INCLUDE 234 BEDS AT THE [facility] Ondansetron HCl (Zofran) 4 mg IVPUSH Q6H PRN PRN Reason: Nausea/Vomiting Ondansetron HCl (Zofran) 4 mg IVPUSH ONETIME PRN PRN Reason: Nausea/Vomiting Stop: 10/03/17 18:00 Ondansetron HCl (Zofran) Confirm Administered Dose 4 mg .ROUTE .STK-MED ONE Stop: 10/03/17 10:23 Oxycodone HCl (Oxycontin) 10 mg PO ONETIME RCIK Stop: 10/03/17 18:00 Oxycodone HCl (Oxycontin) 10 mg PO ONETIME RICK Stop: 10/03/17 18:00 Last Admin: 10/03/17 07:50 Dose: 10 mg Pregabalin (Lyrica) 50 mg PO ONETIME RICK Pregabalin (Lyrica) 50 mg PO ONETIME RICK Stop: 10/03/17 12:00 Last Admin: 10/03/17 07:50 Dose: 50 mg Propofol (Diprivan 20 Ml) Confirm Administered Dose 600 mg .ROUTE .STK-MED ONE Stop: 10/03/17 06:28 Ropivacaine (Naropin 0.5%) Confirm Administered Dose 30 ml .ROUTE .STK-MED ONE Stop: 10/03/17 06:34 Sodium Chloride (Saline Flush) 10 ml FLUSH ASDIRECTED PRN PRN Reason: Keep Vein Open Stop: 10/03/17 18:00 Tranexamic Acid (Cyklokapron) Confirm Administered Dose 1,000 mg .ROUTE .STK- MED ONE Stop: 10/03/17 07:26 Last Admin: 10/03/17 10:13 Dose: 1,000 mg Vancomycin HCl (Vancomycin) Confirm Administered Dose 1 gm .ROUTE .STK-MED ONE Stop: 10/03/17 07:26 Last Admin: 10/03/17 10:09 Dose: 1 gm
[2017-10-04] MEDS: Famotidine 20 MG Tab PO SCH (08:37)
[2017-10-04] MEDS: Docusate Sodium 100 MG Cap PO SCH (08:38)
[2017-10-04 08:45] VITALS: BP 129/81
[2017-10-04] MEDS ORDERED: Rivaroxaban 10 MG Tab PO SCH (09:00)
[2017-10-04] MEDS ORDERED: Aspirin 81 MG Tab.Chew PO SCH (09:00)
[2017-10-04] MEDS ORDERED: Hydrochlorothiazide 25 MG Tab PO SCH (09:00)
[2017-10-04] MEDS ORDERED: MAGNESIUM CMB PO SCH (09:00)
[2017-10-04] MEDS ORDERED: CALCIUM CARB PO SCH (09:00)
[2017-10-04] MEDS ORDERED: Metoprolol Succinate 50 MG Tab.ER PO SCH (09:00)
[2017-10-04] MEDS ORDERED: Levothyroxine 50 MCG Tab PO SCH (09:00)
[2017-10-04] MEDS ORDERED: Citalopram 20 MG Tab PO SCH (09:00)
[2017-10-04] MEDS ORDERED: UBIDECARENONE 50 MG PO SCH (09:00)
--- NOTE | 2017-10-04 14:11 | OR ---
DATE OF OPERATION: 10/03/2017 SURGEON: Joshua Pascal MD OPERATION PERFORMED: Right total knee arthroplasty. PREOPERATIVE DIAGNOSIS: Right knee osteoarthrosis. POSTOPERATIVE DIAGNOSIS: Right knee osteoarthrosis. ANESTHESIA: Local MAC with spinal. ANESTHESIA PROVIDER: Neetu Rojo MD. WHARF TENDER HELPER: Sandrine Ramirez PA-C and Tisha Landers LPN. ESTIMATED BLOOD LOSS: 250 mL COMPLICATIONS: None. CONDITION: Stable. IMPLANTS: 1. [place] size 3 press-fit CR femur. 2. [place] size 2 press-fit tibia. 3. Shantel size 2, 9 mm CS Polyethylene insert. 4. A 29 x 9 mm press-fit asymmetric Shantel patella. DESCRIPTION OF PROCEDURE: The patient was identified in the preop holding area. Proper site was marked and identified by the surgeon. The patient was taken back to the operating theater. After adequate anesthesia, the patient's right lower extremity had a nonsterile tourniquet applied and it was then sterilely prepped and draped in the usual sterile fashion. OR timeout was performed. The patient received 2 g IV Ancef. At this time, right lower extremity was exsanguinated. Tourniquet was insufflated to 300 mmHg. Standard medial parapatellar incision was made. Medial parapatellar arthrotomy was created. Deep fibers of the MCL were raised and anterior fat pad was resected. At this time, attention was turned to the patella. Patella measured 18, it was resected to 13 for 29 x 9 mm patella. Drill holes were then drilled and found to be in adequate position. The drill was then drilled in the distal femur and the intramedullary distal femoral cutting guide was then placed. 8 mm was resected off the distal femur and was found to be an adequate resection. Sizing guide was placed. It was found to be a size 3 femur that was shown on the implant record at the beginning of this dictation. The drill holes were drilled for the epicondylar axis using [place] line and epicondyles as reference. At this time, the 4-in-1 cutting block was placed. An anterior posterior and anterior and posterior chamfer cuts were then completed. The correct size box cut was then placed and the box cut was completed and found to be an adequate resection. Attention was turned to the tibia. The posterior medial lateral retractors were placed. The extramedullary tibial guide was placed. It was placed in the old footprint of the ACL. It was aligned with the center of the ankle and 0 degrees of slope, 9 mm was then resected off the unaffected lateral side. There was found to be an acceptable reduction. At this time, posterior osteophytes were removed along with medial and lateral meniscus. A trial implant was placed with a correct sized tibia that was mentioned at the beginning of the dictation. A 2, 9 mm CS polyethylene trial was then placed. The patient's knee was brought through range of motion. The patella was tracking centrally and was stable to varus and valgus stress. Alignment was found to be roughly at 0 degrees. The tibia was stamped and drilled in proper rotation. The universal tibial base plate was impacted in place. Next, the size 3 press-fit CR femur impacted into place and the 2, 9 mm CS polyethylene was placed. The patient's knee was brought into full extension. The patella was then impacted in place at this time. Tourniquet was deflated. One liter dilute Betadine solution was irrigated through the knee along with 3 L of pulse lavage irrigation with Ancef. Periarticular injection was then completed. The patient's knee was brought through a range of motion. Knee was found to be stable to varus valgus stress, the patella was tracking centrally with full range of motion. At this time, a #2 barbed suture was used for closure of the medial parapatellar arthrotomy. Topical tranexamic acid was placed. 2-0 Vicryl was used subcutaneously, a running 3-0 Monocryl was used subcuticularly. The patient tolerated the procedure well and was sent to the PACU in stable condition. MMODAL /[id number] NURYS
== END 2017-10-04 12:48 | disposition home or self-care (01) | DRG 302 ==
LOC: JD.MS 07:10 → EDSTATUS 10:00
PROVIDERS: ADMIT Orthopaedic Surgery; ATTEND Orthopaedic Surgery
PROC: 0SRC0JA Replacement of Right Knee Joint with Synthetic Substitute, Uncemented, Open Approach (ICD-10-PCS; principal; 2017-10-03)
PROC: 3E0T3BZ Introduction of Anesthetic Agent into Peripheral Nerves and Plexi, Percutaneous Approach (ICD-10-PCS; 2017-10-03)
DX: M17.11 Unilateral primary osteoarthritis, right knee (principal); M25.761 Osteophyte, right knee; I10 Essential (primary) hypertension; E78.5 Hyperlipidemia, unspecified; E78.00 Pure hypercholesterolemia, unspecified; R91.8 Other nonspecific abnormal finding of lung field; E03.9 Hypothyroidism, unspecified; F41.9 Anxiety disorder, unspecified; G47.00 Insomnia, unspecified; D18.09 Hemangioma of other sites; K29.70 Gastritis, unspecified, without bleeding; F32.9 Major depressive disorder, single episode, unspecified; E66.9 Obesity, unspecified; H54.7 Unspecified visual loss; R79.89 Other specified abnormal findings of blood chemistry; Z79.82 Long term (current) use of aspirin; Z79.899 Other long term (current) drug therapy; Z86.010 Personal history of colon polyps; Z98.891 History of uterine scar from previous surgery; Z91.048 Other nonmedicinal substance allergy status; Z90.49 Acquired absence of other specified parts of digestive tract
CPT/HCPCS: 36415; 73560-26-RT; 73560-RT; 80053; 85027; 87641; 97110-GP; 97116-GP; 97161-GP; 97165-GO; 97535-GO; A9270-GY; C1776; J0171; J0690; J0697; J1885; J2001; J2250; J2270; J2405; J2704; J2795; J3010; J3370; J7120

== ENCOUNTER 2024-08-27 07:00 | Day surgery (SDC) | payer MEDICARE, BC ==
[~2024-08-27 07:00] MED LIST changes: -Acetaminophen 325 MG Tab PO SCH; +Dexamethasone 4 MG/ML 5 ML MDV ONE; -EPINEPHrine 1 MG/ML SDV ONE; +Ketorolac 30 MG/ML SDV ONE; -Lactated Ringers 1,000 ML IV SCH; -Lidocaine 1% 4 ML ONE; -Lidocaine 1%/Sod Bicarbonate in NS 8.4% 1 ML Syringe IDERM PRN; +Lidocaine 2% 5 ML SDV ONE; +Morphine 8 MG, EPINEPHrine 0.3 MG, Cefuroxime 750 MG, Ketorolac 30 MG, Sodium Chloride ... PRN; +Ondansetron 4 MG/2 ML SDV ONE; -Pregabalin 25 MG Cap PO SCH; +Sodium Chloride 0.9% 10 ML Syringe FLUSH SCH; -ceFAZolin 1 GM Vial ONE; +ceFAZolin 2 GM Vial ONE; +dexmedeTOMIDine HCl 200 MCG/2 ML SDV ONE; -fentaNYL 100 MCG/2 ML SDV ONE; -oxyCODONE ER 10 MG TAB.ER PO SCH
[2024-08-27] MEDS: Lactated Ringers 1,000 ML IV SCH (07:10)
[2024-08-27] MEDS ORDERED: Lactated Ringers 1,000 ML ONE (09:05)
[2024-08-27] MEDS: Morphine 8 MG, EPINEPHrine 0.3 MG, Cefuroxime 750 MG, Ketorolac 30 MG, Sodium Chloride ... PRN (09:27)
[2024-08-27] MEDS: Tranexamic Acid 1,000 MG/10 ML Vial ONE (09:34)
[2024-08-27] MEDS: VANCOmycin 1 GM SDV ONE (09:34)
[2024-08-27] MEDS: Bupivacaine 0.25% 10 ML SDV ONE (09:53)
[2024-08-27] MEDS: Triamcinolone Acetonide 40 MG/ML 1 ML SDV ONE (09:53)
[2024-08-27] MEDS ORDERED: Acetaminophen/HYDROcodone 325-5 MG Tab PO PRN (10:56)
[2024-08-27] MEDS ORDERED: HYDROmorphone 0.5 MG/0.5 ML Syringe IVPUSH PRN (11:15)
[2024-08-27] MEDS ORDERED: fentaNYL 100 MCG/2 ML SDV IVPUSH PRN (11:15)
[2024-08-27] MEDS ORDERED: Ondansetron 4 MG/2 ML SDV IVPUSH PRN (11:15)
[2024-08-27 14:54] VITALS: BP 114/67; PULSE 70
== END 2024-08-27 14:35 | disposition home or self-care (01) ==
LOC: JD.SDS 07:00
PROVIDERS: ATTEND Orthopaedic Surgery
DX: M17.12 Unilateral primary osteoarthritis, left knee (principal); M65.842 Other synovitis and tenosynovitis, left hand; I10 Essential (primary) hypertension; E03.9 Hypothyroidism, unspecified; F41.1 Generalized anxiety disorder; Z79.890 Hormone replacement therapy; Z79.899 Other long term (current) drug therapy; Z91.041 Radiographic dye allergy status
CPT/HCPCS: 0055T; 26055; 27447; 73560; 97116; 97161; C1713; C1776; J0171; J0665; J0690; J0697; J1100; J1885; J2003; J2250; J2272; J2405; J2704; J2795; J3301; J7120; 01402; 64447; 99100; J3490